=== PATIENT | female | born 1960 | race Caucasian/White ===

== ENCOUNTER 2018-10-23 18:16 | Outpatient (REF) | payer MEDICAID, SELFPAY ==
[2018-10-23 22:48] LABS: ALT 53 U/L (12-78); AST 37 U/L (15-37); Alkaline Phosphatase 95 U/L (46-116); Anion Gap 9.4 mmol/L (3-11); BUN 17 mg/dL (7-18); Bilirubin, Total 0.4 mg/dL (0.2-1.0); CO2 27.6 mmol/L (21.0-32.0); CREATININE 0.88 mg/dL (0.55-1.02); Calcium 9.1 mg/dL (8.5-10.1); Chloride 99 mmol/L (98-107); Glucose 101 mg/dL (70-100); Potassium 3.4 mmol/L (3.5-5.1); Sodium 136 mmol/L (136-145); Total Protein 7.5 g/dL (6.4-8.2)
== END 2018-10-23 18:36 ==
LOC: NCHCN 18:16
PROVIDERS: PCP Family Medicine; Visit Provider Family Medicine
DX: I10 Essential (primary) hypertension (principal)
CPT/HCPCS: 80053

== ENCOUNTER 2019-04-25 11:35 | Outpatient (REF) | payer MEDICAID, SELFPAY ==
--- NOTE | 2019-04-25 14:45 | PAPFT_PTH ---
PATIENT: Keely Colmenares LOC: [facility] U#:[id number] AGE/SX: 59/F ROOM: RE04/25/[address]: Aleksandra Acuna : 1960 BED: DIS: 04/25/2019 SPEC #: [id number] RECD: 04/28/19 12:57 STATUS: ANTONIO RERigoberto #: [id number] BARAK: 04/25/19 14:[address]: Aleksandra Acuna [facility] Cytology RECD BY: Oxana Pollard Tissues: 1 - CX/ENDOCX FOR PAP SMEARS Procedures: PAP THIN PREP/UVM Screening HPV DNA PROBE Comments: [id number]
== END 2019-04-25 11:55 ==
LOC: NCHCN 11:35
PROVIDERS: PCP Family Medicine; Visit Provider Family Medicine
DX: Z12.4 Encounter for screening for malignant neoplasm of cervix (principal)
CPT/HCPCS: 88142; 87624

== ENCOUNTER 2020-05-04 17:01 | Outpatient (REF) | payer MEDICAID, SELFPAY ==
[2020-05-04 21:58] LABS: COMMENT (LAB VIEW ONLY) 119.55 mg/dL; Microalb ug/mg Crea 14.6 ug/mg Cr
== END 2020-05-04 17:21 ==
LOC: NCHCN 17:01
PROVIDERS: PCP Family Medicine; Visit Provider Family Medicine
DX: E11.9 Type 2 diabetes mellitus without complications (principal); I10 Essential (primary) hypertension
CPT/HCPCS: 82043; 82570

== ENCOUNTER 2020-07-27 20:52 | Outpatient (REF) | payer MEDICAID, SELFPAY ==
[2020-07-27 20:44] LABS: Hemoglobin A1C 6.4 % (<5.7)
[2020-07-27 20:50] LABS: ALT 32 U/L (14-59); AST 25 U/L (15-37); Albumin 3.9 g/dL (3.4-5.0); Alkaline Phosphatase 89 U/L (46-116); Anion Gap 10.5 mmol/L (3-11); BUN 19 mg/dL (7-18); Bilirubin, Total 0.4 mg/dL (0.2-1.0); CO2 30.5 mmol/L (21.0-32.0); CREATININE 0.8 mg/dL (0.55-1.02); Calcium 8.7 mg/dL (8.5-10.1); Calculated LDL 109 mg/dL (<100); Chloride 99 mmol/L (98-107); Cholesterol 205 mg/dL (<200); Glucose 92 mg/dL (74-106); HDL Cholesterol 51 mg/dL (40-60); Potassium 3.7 mmol/L (3.5-5.1); Sodium 140 mmol/L (136-145); Total Protein 7.3 g/dL (6.4-8.2); Triglyceride 226 mg/dL (<150)
== END 2020-07-27 20:53 | disposition home or self-care (01) ==
LOC: NCHCN 20:52
PROVIDERS: PCP Family Medicine; Visit Provider Family Medicine
DX: E11.9 Type 2 diabetes mellitus without complications (principal); Z00.00 Encounter for general adult medical examination without abnormal findings; Z13.220 Encounter for screening for lipoid disorders
CPT/HCPCS: 80053; 80061; 83036

== ENCOUNTER 2021-07-26 16:15 | Outpatient (REF) | payer MEDICAID, SELFPAY ==
[2021-07-26 21:21] LABS: Abs Immature Grans 0.02 10^3/uL (0.0-0.06); Absolute Basophil Count 0.06 10^3/uL (0.0-0.2); Absolute Eosinophil Count 0.26 10^3/uL (0.0-0.7); Absolute Lymphocyte Count 2.19 10^3/uL (1.2-3.4); Absolute Monocyte Count 0.65 10^3/uL (0.1-0.8); Absolute Neutrophil Count 4.07 10^3/uL (1.2-6.7); Basophils % 0.8; Eosinophils % 3.6; HCT 42.7 % (36.0-46.0); HGB 13.4 g/dL (11.2-15.7); Immature Grans % 0.3; Lymphocytes % 30.2; MCH 27.7 pg (27.0-33.0); MCHC 31.4 % (32.0-36.0); MCV 88.4 fL (80-95); MPV 9.9 fL (8.0-11.0); Neutrophils % 56.1; Nucleated RBC 0 %; Platelet Count 330 10^3/uL (130-400); RBC 4.83 10^6/uL (3.93-5.22); RDW 15.3 % (11.7-14.6); RDW-SD 49.6 fL; WBC 7.25 10^3/uL (4.4-10.8)
[2021-07-26 21:32] LABS: ESR 71 mm/hr (0-30)
[2021-07-26 21:37] LABS: ALT 24 U/L (14-59); AST 20 U/L (15-37); Albumin 3.7 g/dL (3.4-5.0); Alkaline Phosphatase 116 U/L (46-116); Anion Gap 14.1 mmol/L (3-11); BUN 25 mg/dL (7-18); Bilirubin, Total 0.3 mg/dL (0.2-1.0); CO2 29.9 mmol/L (21.0-32.0); CREATININE 0.7 mg/dL (0.55-1.02); Calcium 8.8 mg/dL (8.5-10.1); Calculated LDL 72 mg/dL (<100); Chloride 94 mmol/L (98-107); Cholesterol 170 mg/dL (<200); Glucose 78 mg/dL (74-106); HDL Cholesterol 47 mg/dL (40-60); Sodium 138 mmol/L (136-145); Total Protein 7.6 g/dL (6.4-8.2); Triglyceride 257 mg/dL (<150)
[2021-07-26 21:49] LABS: C-Reactive Protein 2.28 mg/dL (0.0-0.3)
[2021-07-27 17:02] LABS: Rheumatoid Factor <8.6 IU/mL (<12.0)
[2021-07-28 10:41] LABS: Lyme Ab w Rflx to Lyme Confirm Negative (Negative)
== END 2021-07-26 16:16 | disposition home or self-care (01) ==
LOC: NCHCN 16:15
PROVIDERS: PCP Family Medicine; Visit Provider Family Medicine
DX: I10 Essential (primary) hypertension (principal); M25.59 Pain in other specified joint
CPT/HCPCS: 80053; 80061; 85652; 85025; 86140; 86431; 86618

== ENCOUNTER 2021-10-18 12:21 | Outpatient (REF) | payer MEDICAID, SELFPAY ==
[2021-10-18 22:18] LABS: COMMENT (LAB VIEW ONLY) 223.25 mg/dL; Microalb ug/mg Crea 9.7 ug/mg Cr
--- OUTSIDE RECORDS SUMMARY | 2021-10-19 12:24 | XMS_ITS | Clinical Summary ---
:1960 Author Organization [facility] Address [address] [place] [address] Care Team Providers Name Role Phone Aleksandra Acuna MD Primary Care Provider Allergies Active Allergy Reactions Severity Noted Date Comments Clindamycin Hives 08/29/2021 Medications Medication Sig Dispensed Refills Start Date End Date Status aspirin 81 mg EC tablet Take 81 mg by 0 07/27/2021 Active mouth daily. amLODIPine (NORVASC) 10 Take 10 mg by 0 07/27/2021 Active mg tablet mouth daily. FREESTYLE LITE STRIPS USE ONE STRIP 0 07/06/2021 Active test strips TO TEST TWICE DAILY JARDIANCE 10 mg tablet Take 10 mg by 0 06/28/2021 Active mouth daily. escitalopram oxalate Take 20 mg by 0 07/27/2021 Active (LEXAPRO) 20 mg tablet mouth daily. hydroCHLOROthiazide Take 25 mg by 0 07/27/2021 Active (HYDRODIURIL) 25 mg mouth daily. tablet metFORMIN (GLUCOPHAGE-XR) Take 750 mg 0 07/27/2021 Active 750 mg ER tablet by mouth daily. metoprolol TARtrate Take 100 mg 0 07/27/2021 Active (LOPRESSOR) 50 mg tablet by mouth 2 times daily. omeprazole (PRILOSEC) 40 Take by mouth 0 07/06/2021 Active mg capsule daily. simvastatin (ZOCOR) 20 mg Take 20 mg by 0 07/28/2021 Active tablet mouth daily. valACYclovir (VALTREX) 1 As needed 0 07/06/2021 Active gram tablet magnesium oxide 400 mg Take 400 mg 0 Active magnesium capsule by mouth daily. predniSONE (DELTASONE) 5 Take 3 126 Tablet 0 08/29/2021 mg tablet Tablets by 2 mouth daily for 21 days, THEN 2.5 Tablets daily for 14 days, THEN 2 Tablets daily for 14 days. Active Problems No known active problems Encounters Date Type Specialty Care Team Description 09/26/2021 Telephone Rheumatology Tyra Long Update MD Christi 09/14/2021 Hospital Encounter Radiology Acute ruperto n of both shoulders 08/29/2021 Phlebotomy Only Clinical Laboratory Lab, [facility] [place] Op Polya rthralgia Phlebotomy 08/29/2021 Office Visit Rheumatology Tyra Long Acute pain of both shoulders (Primary Dx); MD Christi Bilateral hip p ain 07/27/2021 Lab Requisition Clinical Laboratory Outr Resulting Lab, Provider from Last 3 Months Social History Tobacco Use Types Packs/Day Years Used Date Current Every Day Smoker 0.75 45 Smokeless Tobacco: Never Used Tobacco Cessation: Ready to Quit: No; Co unseling Given: No Sex Assigned at Date Recorded Not on file Last Filed Vital Signs Vital Sign Reading Time Taken Comments Blood Pressure 134/78 08/29/2021 1429 EDT Pulse 72 08/29/2021 1429 EDT Temperature 36 ??C (96.8 ??F) 08/29/2021 1429 EDT Respiratory Rate - - Oxygen Saturation - - Inhaled Oxygen Concentration - - Weight 86.2 kg (190 lb) 08/29/2021 1429 EDT Height 154.9 cm (5' 1) 08/29/2021 1429 EDT Body Mass Index 35.9 08/29/2021 1429 EDT Plan of Treatment Upcoming Encounters Date Type Specialty Care Team Description 11/03/2021 Office Visit Rheumatology Tyra Long MD [address] [place] [address], [address] [place], [place] [address] (Wo rk) Health Maintenance Due Date Last Done Comments Hepatitis C Screen 1960 COVID-19 Vaccine (#1) 1966 Pneumococcal Immunization (1 - PCV) 1966 Lung Cancer Screening 09/14/2022 09/14/2021 Procedures Procedure Name Priority Date/Time Associated Diagnosis Comme nts CT CHEST LOW DOSE Routine 09/14/2021 14:00 Acute pain of both Results for this LUNG SCREENING EDT shoulders procedure are in the results section. SPEP, INCLUDES Routine 08/29/2021 16:02 Polyarthralgia Results for this QUANTITATION OF EDT procedure ar e in MONOCLONAL SPIKE the results PERFORMABLE section. PROTEIN, TOTAL Routine 08/29/2021 16:02 Polyarthralgia EDT SPEP, INCLUDES Routine 08/29/2021 16:02 Polyarthralgia Results for this QUANTITATION OF EDT procedure ar e in MONOCLONAL SPIKE the results section. CK Routine 08/29/2021 16:02 Polyarthralgia Results f or this EDT procedure are i n the results section. CCP ANTIBODIES Routine 08/29/2021 16:02 Polyarthralgia Results for this EDT procedure are i n the results section. LYME AB Routine 07/26/2021 14:55 Results for this EDT procedure are i n the results section. RHEUMATOID FACTOR Routine 07/26/2021 14:55 Result s for this EDT procedure are i n the results section. from Last [address] CHEST LOW DOSE LUNG SCREENING (09/14/2021 14:00 EDT) Anatomical Region Laterality Modality Chest Computed Tomography Specimen Impressions [facility] - 09/14/2021 15:35 EDT 1. LungRADS Category 2: Benign. Scattere d bilateral pulmonary nodules measuring up to 5 mm. 2. LungRADS Category S: Negative. No cli nically significant or potentially clinically significant nonlung cancer findings requiring urgent additional evaluation. 3. Incidental findings: As above. RECOMMENDATIONS: Continue annual screeni ng with low-dose CT in 12 months Continued ??low dose CT lung cancer scre ening should be based upon continued eligibility determined from age and smoking history. This report utilizes the CT Lung Screeni ng Reporting and Data System (ACR LungRADS version 1.1) as below: Category 0: Incomplete (part or all of l kati cannot be evaluated, or prior chest CT being located for comparison) Category 1: Negative (no nodules or defi nitely benign nodules) Category 2: Benign appearance or behavio r (nodules with very low likelihood of becoming a clinically active cancer, risk of malignancy <1%) Category 3: Probably benign (probably be nign finding - short term follow up suggested, risk of malignancy 1-2%) Category 4: Suspicious (additional diagn ostic testing or tissue sampling recommended) Modifiers to Categories 1-4: Category S: Potentially significant anci llary finding requiring urgent additional evaluation. Narrative [facility] - 09/14/2021 15:[address] CHEST LOW DOSE LUNG SCREENING ??09/14/2021 2:00 PM CLINICAL HISTORY/COMMENTS: LUNG CANCER S CREENING, >= 30 PK-YR SMOKING HISTORY IN LAST 15 YRS (AGE 55-80Y) TECHNIQUE: A single breath-hold helical CT acquisition was performed through the chest on a multidetector-row scanner with a reconstructed slice thickness of 3 mm and retrospectively reconstructed 0.9 m m thick sections with 0.45 mm overlappin g intervals. ??The scans were obtained from the lung apices through the bases without IV contrast. Dose was adjusted between 1.0 and 1.5 milliSieverts for low dos e screening purposes. Scans were reviewe d on a dedicated PACS workstation for analysis. EXAM DESCRIPTION: LOW DOSE CHEST CT FOR LUNG CANCER SCREENING (INITIAL OR FOLLOW-UP). COMPARISON: None. FINDINGS: LUNG SCREENING SPECIFIC (LUNGRADS) FINDI NGS: * ??In the posterior right lung apex the re is a 3mm pleural-based nodule (series 202, image 143). * ??In the lateral right midlung there i s a 3mm nodule (series 202, image 222). * ?? In the posterior right base is a 3m m calcified nodule (series 202, image 438). * ??In the posterior right lower lobe th ere is a 5mm nodule (series 202, image 335). * ??In the posterior left upper lung the re is a 4mm pleural-based nodule (series 202, image 209). POTENTIALLY SIGNIFICANT INCIDENTALS (ESSIE GRADS CATEGORY S): None PULMONARY INCIDENTALS: * ??Emphysema. * ??Large airway thickening. * ??Vague areas of groundglass opacity s cattered within the periphery of the upper lungs, possibly reflecting early interstitial lung disease. ?? OTHER INCIDENTALS: * ??Atherosclerosis throughout the thora cic aorta. Coronary artery calcifications. * ??Partially visualized left upper pole renal 5 cm structure, demonstrating fluid density and likely reflecting a cyst ACR REPORTABLE INCIDENTALS: None Performing Organization Address City/State/ZIP Code Phon e Number [facility] (ABNORMAL) SPEP, INCLUDES QUANTITATION OF MONOCLONAL SPIKE PERFORMABLE (08/29/2021 16:02 EDT) Albumin % 52.1 (L) 55.8 - 66.1 % [facility] Albumin g/dL 3.8 3.6 - 5.2 g/dL [facility] Alpha-1 % 4.8 2.9 - 4.9 % [facility] Alpha-1 g/dL 0.40 0.15 - 0.40 [facility] g/dL [facility] Alpha-2 % 13.4 (H) 7.1 - 11.8 % [facility] Alpha-2 g/dL 1.00 0.50 - 1.00 [facility] g/dL [facility] Beta % 12.7 8.4 - 13.1 % [facility] Beta g/dL 0.90 0.60 - 1.20 [facility] g/dL [facility] Gamma % 17.0 11.1 - 18.8 % [facility] Gamma g/dL 1.20 0.60 - 1.60 [facility] g/dL [facility] SPEP Comment No apparent [facility] monoclonal protein [facility] seen on serum electrophoresisComm ent: See scanned/supplementa ry report. Total Protein 7.3 6.3 - 8.2 g/dL [facility] Specimen Blood - Venous blood (substance) Narrative This result has an attachment that is no t available. Performing Organization Address City/State/ZIP Code Phon e Number [facility] [address] [place] [address] SERVICES CCP ANTIBODIES (08/29/2021 16:02 EDT) Pathologist Sig nature CCP Antibodies <2.5 <5.0 U/mL [facility] Specimen Blood - Venous blood (substance) Performing Organization Address City/State/ZIP Code Phon e Number [facility] [address] [place] [address] SERVICES PROTEIN, TOTAL (08/29/2021 16:02 EDT) Specimen Blood - Venous blood (substance) Performing Organization Address City/State/ZIP Code Phon e Number [facility] [address] [place] [address] CK (08/29/2021 16:02 EDT) Pathologist Sig nature CK 56 30 - 135 U/L [facility] L AB Specimen Blood - Venous blood (substance) Performing Organization Address City/State/ZIP Code Phon e Number [facility] [address] [place] [address] LYME AB (07/26/2021 14:55 EDT) Pathologist Sig nature Lyme Ab Negative Negative [facility] Specimen Blood - Venous blood (substance) Performing Organization Address City/State/ZIP Code Phon e Number [facility] [address] [place] [address] SERVICES RHEUMATOID FACTOR (07/26/2021 14:55 EDT) Pathologist Sig nature Rheumatoid Factor <8.6 <12.0 IU/mL [facility] Specimen Blood - Venous blood (substance) Performing Organization Address City/State/ZIP Code Phon e Number [facility] [address] [place] [address] SERVICES from Last 3 Months Insurance Payer Benefit Plan Subscriber ID Effective Phone Address Typ e / Group Dates MEDICAID ACO MEDICAID ACO [id number] 2019-Pres [phone] [address] [place] [address] [place] [id number] Keely Colmenares Personal/Family Self 1960 [address] [place] [id number] Keely Colmenares Personal/Family Self [address] [place] [id number] Keely Colmenares Personal/Family Self [address] [address] Keely Colmenares Personal/Family Self 1960 [address] (Home) [place] [address] Keely Colmenares Personal/Family Self 1960 [address] (Home) [place] [id number] Keely Colmenares Personal/Family Self 1960 [address] (Home) [place] [id number] Keely Colmenares Personal/Family Self 1960 [address] (Home) [place] [id number] Care Teams Oxyacetylene Torch Operator Relationship Specialty Start Date End Date Aleksandra Acuna MD PCP - General 12/09/[address] [place] [address]
--- OUTSIDE RECORDS SUMMARY | 2021-10-19 12:24 | XMS_ITS | Encounter Summary ---
:[address] [facility] Address [address] [place] [address] Care Team Providers Name Role Phone Aleksandra Acuna MD Primary Care Provider Reason for Referral Radiology Services (Routine/Next Available) - Authorization Not Required Specialty Diagnoses / Procedures Referred By Contact Refer red To Contact Diagnoses Acute pain of both shoulders Tyra Long MD [facility] [place] [facility] CHEST LOW DOSE LUNG SCREENING [address] [phone] Referral ID Status Reason Start Expiration Visits Visits Date Date Requested Authorized [id number] Authorization Not 08/29/2021 1 1 Required Reason for Visit Radiology Services (Routine/Next Available) - Authorization Not Required Specialty Diagnoses / Procedures Referred By Contact Refer red To Contact Diagnoses Acute pain of both shoulders Tyra Long MD [facility] CT CHEST LOW DOSE LUNG SCREENING [address] [phone] Referral ID Status Reason Start Expiration Visits Visits Date Date Requested Authorized [id number] Authorization Not 08/29/2021 1 1 Required Encounter Details Date Type Department Care Team Description 09/14/2021 Hospital Encounter [facility] - A cute pain of both [facility] Scan shoulders [address] [place] [address] Social History Tobacco Use Types Packs/Day Years Used Date Current Every Day Smoker 0.75 45 Smokeless Tobacco: Never Used Sex Assigned at Date Recorded Not on file documented as of this encounter Functional Status Functional Status Response Date of Assessment Because of a physical, mental, or emotional condition, No 08/29/2021 does this person have difficulty doing errands alone such as visiting a doctor's office or shopping? Cognitive Status Response Date of Assessment Because of a physical, mental, or emotional condition, No 08/29/2021 does this person have serious difficulty concentrating, remembering, or making decisions? documented as of this encounter Medications at Time of Discharge Medication Sig Dispensed Refills Start Date End Date amLODIPine (NORVASC) 10 mg Take 10 mg by 0 2021 tablet mouth daily. aspirin 81 mg EC tablet Take 81 mg by 0 2 mouth daily. escitalopram oxalate Take 20 mg by 0 07/27/2021 (LEXAPRO) 20 mg tablet mouth daily. FREESTYLE LITE STRIPS test USE ONE STRIP TO 0 strips TEST TWICE DAILY hydroCHLOROthiazide Take 25 mg by 0 07/27/2021 (HYDRODIURIL) 25 mg tablet mouth daily. JARDIANCE 10 mg tablet Take 10 mg by 0 06/28/2021 mouth daily. magnesium oxide 400 mg Take 400 mg by 0 magnesium capsule mouth daily. metFORMIN (GLUCOPHAGE-XR) Take 750 mg by 0 2021 750 mg ER tablet mouth daily. metoprolol TARtrate Take 100 mg by 0 07/27/2021 (LOPRESSOR) 50 mg tablet mouth 2 times daily. omeprazole (PRILOSEC) 40 mg Take by mouth 0 07/06 capsule daily. simvastatin (ZOCOR) 20 mg Take 20 mg by 0 07/28/ 022 tablet mouth daily. valACYclovir (VALTREX) 1 As needed 0 07/06/2021 gram tablet predniSONE (DELTASONE) 5 mg Take 3 Tablets 126 Tablet 0 12/202110/17/2021 tablet by mouth daily for 21 days, THEN 2.5 Tablets daily for 14 days, THEN 2 Tablets daily for 14 days. documented as of this encounter Discharge Disposition Disposition Code Departure Means Destination Home or Self Care documented in this encounter Plan of Treatment Upcoming Encounters Date Type Specialty Care Team Description 11/03/2021 Office Visit Rheumatology Tyra Long MD [address] [facility] [address], [address] [place], [place] [address] (Wo rk) documented as of this encounter Procedures Procedure Name Priority Date/Time Associated Diagnosis Comme nts CT CHEST LOW DOSE Routine 09/14/2021 14:00 Acute pain of both Results for this LUNG SCREENING EDT shoulders procedure are in the results section. documented in this encounter Results CT CHEST LOW DOSE LUNG SCREENING (09/14/2021 14:00 EDT) Anatomical Region Laterality Modality Chest Computed Tomography Specimen Impressions [facility] - 09/14/2021 15:35 EDT 1. LungRADS Category [...] llary finding requiring urgent additional evaluation. Narrative [facility] - 09/14/2021 15:[address] CHEST LOW [...] Organization Address City/State/ZIP Code Phon e Number [facility] documented in this encounter Visit Diagnoses Diagnosis Acute pain of both shoulders documented in this encounter Care Teams Entry Level Web Developer Relationship Specialty Start Date End Date Aleksandra Acuna MD PCP - General 12/09/[address] [place] [address] documented as of this encounter
--- OUTSIDE RECORDS SUMMARY | 2021-10-19 12:24 | XMS_ITS | Encounter Summary ---
:1960 Author Organization [facility] Address [address] [place] [address] Care Team Providers Name Role Phone Aleksandra Acuna MD Primary Care Provider Reason for Referral Radiology Services (Routine/Next Available) - Authorization Not Required Specialty Diagnoses / Procedures Referred By Contact Refer red To Contact Diagnoses Acute pain of both shoulders Tyra Long MD [facility] [place] CHEST LOW DOSE LUNG SCREENING [address] [facility], [address] [place] [address] Referral ID Status Reason Start Expiration Visits Visits Date Date Requested Authorized [id number] Authorization Not 08/29/2021 1 1 Required Reason for Visit Reason Comments New Patient Visit For polyarthralgia factors p t states 3 months of shoulders,wrists,back of lke kgs/knees. fatigue all the time-no strength. physical therapy h elping some. can feel it all the time;worse in am and nights horrible. has no idea whats going on. tripping a lot Referral (Routine) - Receiving Office to Obtain Authorization Specialty Diagnoses / Procedures Referred By Contact Refer red To Contact Rheumatology Diagnoses Polyarthralgia Aleksandra Acuna MD [facility] [address] [place] [address] [place] [address] Fax: Referral ID Status Reason Start Expiration Visits Visits Date Date Requested Authorized [id number] Receiving Office 1 1 to Obtain Authorization Encounter Details Date Type Department Care Team Description 08/29/2021 Office Visit [facility] - Tyra Long, Acute pain of both shoulders (Primary Dx); [facility] Rheumatology Bilateral hip pain [address] [place] [address] Avenue [phone] [facility], [facility] [address] [place] [address] (Wo rk) Social History Tobacco Use Types Packs/Day Years Used Date Current Every Day Smoker 0.75 45 Smokeless Tobacco: Never Used Tobacco Cessation: Ready to Quit: No; Co unseling Given: No Sex Assigned at Date Recorded Not on file documented as of this encounter Last Filed Vital Signs Vital Sign Reading [...] Body Mass Index 35.9 08/29/2021 1429 EDT documented in this encounter Functional Status Functional Status Response [...] making decisions? documented as of this encounter Patient Instructions Patient InstructionsTyra Long MD - 08/29/2021 14:45 EDT Plan: -your symptoms are consistent with fibromyalgia -recommend starting prednisone 15 mg daily for 3 weeks, then taper by 2.5 mg every 2 weeks to 10 mg -have your cat scan of your chest for lung cancer screening, they will call -labs today -let your PCP know you are on steroids so they can monitor your blood sugar -go to the ED immediately with any vision loss/changes -call clinic if you develop headache, tenderness of scalp, trouble chewing food -follow-up with me in 1 month documented in this encounter Ordered Prescriptions Prescription Sig Dispensed Refills Start Date End Date predniSONE (DELTASONE) 5 Take 3 Tablets by 126 Tablet 0 12/202110/17/2021 mg tablet mouth daily for 21 days, THEN 2.5 Tablets daily for 14 days, THEN 2 Tablets daily for 14 days. documented in this encounter Progress Notes Tyra Long MD - 08/29/2021 7865 EDT DIVISION OF RHEUMATOLOGY AND CLINICAL IMMUNOLOGY CONSULTATION NOTE Date of Service: 08/29/21 Patient seen in consultation at the request of Aleksandra Acuna MD for rheumatologic evaluation for polyarthralgia Chief Complaint Patient presents with ??? New Patient Visit For polyarthralgia factors pt states 3 months of shoulders,wrists,back of lkekgs/knees. fatigue allthe time-no strength. physical therapy helping some. can feel it all the time;worse in am and nightshorrible. has no idea whats going on. tripping a lot HISTORY OF PRESENT ILLNESS: Ms. Keely Colmenares is a 61 y.o. female with obesity, HLD, HTN, DM2, GERD, chronic low back pain s/p L4-L5 laminectomy who presents today for rheumatologic evaluation for polyarthralgia and elevated inflammatory markers. Three months ago she noted bilateral shoulder and upper arm pain. Developed numbness in left 1st 3 digits after arms starting hurting. No history of carpal tunnel syndrome. Also notes pain in bilateralposterior and anterior thighs extending into knees. She initially thought her chronic low back pain was flaring but this pain is different from prior. It hurts to reach above her head to wash hair or crouch down at work. Pain is exacerbated by any movement. Hands have been more puffy since this started but denies joint swelling, redness, warmth. She is stiff in the AM to the point she can barely walk, lasting ~45 minutes. Denies fever, weight loss, headache, vision changes, temporal or scalp tenderness, symptoms of jaw claudication, symptoms of peripheral claudication. She is up-to-date on all age appropriate cancer screening but has not had annual lung cancer screening. Meds: Vicodan (for back) Ibuprofen 800 mg TID Referral labs: CBCD, CMP unremarkable rCRP 2.28 ESR 71 Urine pro/Cr wnl RF neg REVIEW OF SYSTEMS: Symptom Yes No Symptom Yes No Fever X Morning stiffness X Fatigue X Numbness/ tingling X Night sweats X Headaches X Weight change X Muscle weakness X Eye discomfort X Dysuria X Mouth/nose sores X Urinary frequency X Chest pain X Hematuria X Palpitations X Trouble sleeping X Dyspnea X Anxiety X Cough X Depression X Nausea/ vomiting X Change in mood X Abdominal pain X Skin rash/ changes X Blood in stools X Sun induced rash X Diarrhea X Raynaud's X Constipation X Itching X Joint pain X Hair loss X Muscle pain X Other X PMH PSH No past medical history on file. No past surgical history on file. ALLERGIES Allergies Allergen Reactions ??? Clindamycin Hives SOCIAL HISTORY FAMILY HISTORY Social History Tobacco Use ??? Smoking status: Current Every Day Smoker Packs/day: 0.25 Years: 35.00 Pack years: 8.75 Substance Use Topics ??? Alcohol use: Not on file Current smoker. . Works in grocery. No family history of autoimmune disease. MEDICATIONS: Current Outpatient Medications Medication Sig ??? amLODIPine (NORVASC) 10 mg tablet Take 10 mg by mouth daily. ??? aspirin 81 mg EC tablet Take 81 mg by mouth daily. ??? escitalopram oxalate (LEXAPRO) 20 mg tablet Take 20 mg by mouth daily. ??? FREESTYLE LITE STRIPS test strips USE ONE STRIP TO TEST TWICE DAILY ??? hydroCHLOROthiazide (HYDRODIURIL) 25 mg tablet Take 25 mg by mouth daily. ??? JARDIANCE 10 mg tablet Take 10 mg by mouth daily. ??? magnesium oxide 400 mg magnesium capsule Take 400 mg by mouth daily. ??? metFORMIN (GLUCOPHAGE-XR) 750 mg ER tablet Take 750 mg by mouth daily. ??? metoprolol TARtrate (LOPRESSOR) 50 mg tablet Take 100 mg by mouth 2 times daily. ??? omeprazole (PRILOSEC) 40 mg capsule Take by mouth daily. ??? predniSONE (DELTASONE) 5 mg tablet Take 3 Tablets by mouth daily for 21 days, THEN 2.5 Tablets daily for 14 days, THEN 2 Tablets daily for 14 days. ??? simvastatin (ZOCOR) 20 mg tablet Take 20 mg by mouth daily. ??? valACYclovir (VALTREX) 1 gram tablet As needed OBJECTIVE: Blood pressure 134/78, pulse 72, temperature 36 ??C (96.8 ??F), height 154.9 cm (61), weight 86.2 kg (190 lb). General: No acute distress. Alert, fully oriented, pleasant, conversant. HEENT: Conjunctivae/corneas clear. Sclerae anicteric. Mucus membranes moist; oropharynx clear. Neck supple, no cervical lymphadenopathy. Lungs: Clear to auscultation bilaterally. Heart: Regular rate and rhythm, S1, S2 present, no murmur Abdomen: Soft, non-tender, non-distended. Extremities: Extremities without cyanosis. Trace non-pitting pedal edema. Skin: No rashes or lesions. No skin thickening. No nail pitting or onycholysis. Musculoskeletal: Spine: No significant tenderness. Mildly reduced cervical range of motion. Shoulder: No synovitis/effusion. Mildly reduced active B/l shoulder ROM in all planes due to pain, full passive ROM. Elbow: No synovitis/effusion. Appropriate range of motion. Wrist: No synovitis or effusion. Appropriate range of motion. Hand: Nonpitting puffiness dorsum of hands b/l, no joint swelling or tenderness, no dacytlitis; Appropriate range of motion. Hips: No synovitis or effusion. Pain on active flexion and passive int/ext rotation b/l. Knee: No synovitis or effusion. Appropriate range of motion. Ankle: No synovitis or effusion. Appropriate range of motion. Foot: No synovitis or effusion. Appropriate range of motion. Neuro: 5/5 strength throughout upper and lower extremities Labs: Lab Results Component Value Date RF <8.6 07/26/2021 IMPRESSION / PLAN: Ms. Keely Colmenares is a 61 y.o. female with acute onset shoulder and hip girdle pain most consistentwith PMR. Bilateral shoulder pain Bilateral hip pain Acute onset of bilateral shoulder and hip girdle pain and stiffness along with elevated CRP and ESR is most consistent with PMR. She has mild nonpitting edema of her hands which can also be seen in PMRthough RS3PE is a consideration. She denies constitutional or localizing symptoms concerning for malignancy and is up-to-date on age appropriate cancer screening. Will check an SPEP and order LDCT for lung cancer screening today. Differential for PMR is seronegative inflammatory arthritis (will complete workup with CCP) vs spondyloarthropathy vs crystalline disease. Statin myopathy also considered though this is not a new medication and she has full strength throughout. Will check a CK but low suspic ion. No evidence of GCA but discussed warning signs/symptoms. PMR is most likely as we will initiateprednisone 15 mg daily for 3 weeks then taper by 2.5 mg down to 10mg, then by 1 mg monthly thereafter. Remainder of plan as below. Other Orders Placed This Visit Procedures ??? CT CHEST LOW DOSE LUNG SCREENING ??? CCP Antibodies ??? CK ??? SPEP, includes quantitation of monoclonal spike Patient Instructions Plan: -your symptoms are consistent with fibromyalgia -recommend starting prednisone 15 mg daily for 3 weeks, then taper by 2.5 mg every 2 weeks to 10 mg -have your cat scan of your chest for lung cancer screening, they will call -labs today -let your PCP know you are on steroids so they can monitor your blood sugar -go to the ED immediately with any vision loss/changes -call clinic if you develop headache, tenderness of scalp, trouble chewing food -follow-up with me in 1 month Patient verbalizes understanding and agrees with plan. There are no barriers to understanding/learning. I spent a total of 50 minutes on the date of this encounter meeting with the patient and reviewing documentation/coordinating care as described in the above note. Tyra Long MD Rheumatology Attending Pager [phone] 08/30/2021 documented in this encounter Plan of Treatment Upcoming Encounters Date Type Specialty Care Team Description 11/03/2021 Office Visit Rheumatology Tyra Long MD [address] [facility], [facility], [address] [place], [place] [phone] (Wo rk) documented as of this encounter Results CT CHEST LOW DOSE LUNG SCREENING (09/14/2021 14:00 EDT) Anatomical Region Laterality Modality Chest Computed Tomography Specimen Impressions [facility] - 09/14/2021 15:35 EDT [...] llary finding requiring urgent additional evaluation. Narrative [facility] - 09/14/2021 15:35 EDT [...] Organization Address City/State/ZIP Code Phon e Number [facility] CK (08/29/2021 16:02 EDT) Pathologist Sig nature CK 56 30 - 135 U/L [facility] L AB Specimen Blood - Venous blood (substance) Performing Organization Address City/State/ZIP Code Phon e Number [facility] [address] [place] [address] CCP ANTIBODIES (08/29/2021 16:02 EDT) Pathologist Sig nature CCP Antibodies <2.5 <5.0 U/mL [facility] Specimen Blood - Venous blood (substance) Performing Organization Address City/State/ZIP Code Phon e Number [facility] [address] [place] [address] SERVICES documented in this encounter Visit Diagnoses Diagnosis Acute pain of both shoulders - Primary Bilateral hip pain Pain in joint, pelvic region and thigh Acute pain of both shoulders documented in this encounter Historical Medications This list may reflect changes made after this encounter. Medication Sig Dispensed Refills Start Date End Date magnesium oxide 400 mg Take 400 mg by 0 magnesium capsule mouth daily. valACYclovir (VALTREX) 1 gram As needed 0 2021 tablet simvastatin (ZOCOR) 20 mg Take 20 mg by 0 022 tablet mouth daily. omeprazole (PRILOSEC) 40 mg Take by mouth 0 07/06 capsule daily. metoprolol TARtrate Take 100 mg by 0 07/27/2021 (LOPRESSOR) 50 mg tablet mouth 2 times daily. metFORMIN (GLUCOPHAGE-XR) 750 Take 750 mg by 0 mg ER tablet mouth daily. hydroCHLOROthiazide Take 25 mg by 0 07/27/2021 (HYDRODIURIL) 25 mg tablet mouth daily. escitalopram oxalate (LEXAPRO) Take 20 mg by 0 20 mg tablet mouth daily. JARDIANCE 10 mg tablet Take 10 mg by 0 06/28/2021 mouth daily. FREESTYLE LITE STRIPS test USE ONE STRIP TO 0 strips TEST TWICE DAILY amLODIPine (NORVASC) 10 mg Take 10 mg by 0 2021 tablet mouth daily. aspirin 81 mg EC tablet Take 81 mg by 0 2 mouth daily. added in this encounter Care Teams Spike Driver Relationship Specialty Start Date End Date Aleksandra Acuna MD PCP - General 12/09/[address] [place] [place] [address] documented as of this encounter
--- OUTSIDE RECORDS SUMMARY | 2021-10-19 12:24 | XMS_ITS | Encounter Summary ---
:1960 Author Organization [facility] Address [address] [place] [address] Care Team Providers Name Role Phone Aleksandra Acuna MD Primary Care Provider Encounter Details Date Type Department Care Team Description 07/27/2021 Lab Requisition [facility] Outr Resulting Lab, Pathology & Laboratory Provider [facility] [address] [place] [address] Social History Tobacco Use Types Packs/Day Years Used Date Never Assessed Sex Assigned at Date Recorded Not on file documented as of this encounter Plan of Treatment Upcoming Encounters Date Type Specialty Care Team Description 11/03/2021 Office Visit Rheumatology Tyra Long MD [address] [facility] [address] [place], [place] [address] (Wo rk) documented as of this encounter Procedures Procedure Name Priority Date/Time Associated Diagnosis Comme nts LYME AB Routine 07/26/2021 14:55 Results for this EDT procedure are i n the results section. RHEUMATOID FACTOR Routine 07/26/2021 14:55 Result s for this EDT procedure are i n the results section. documented in this encounter Results LYME AB (07/26/2021 14:55 EDT) Pathologist Sig nature Lyme Ab Negative Negative [facility] Specimen Blood - Venous blood (substance) Performing Organization Address City/State/ZIP Code Phon e Number [facility] [address] [place] [address] SERVICES RHEUMATOID FACTOR (07/26/2021 14:55 EDT) Pathologist Sig nature Rheumatoid Factor <8.6 <12.0 IU/mL [facility] Specimen Blood - Venous blood (substance) Performing Organization Address City/State/ZIP Code Phon e Number [facility] [address] [place] [address] SERVICES documented in this encounter Visit Diagnoses Not on filedocumented in this encounter Care Teams Electric Shovel Operator Relationship Specialty Start Date End Date Aleksandra Acuna MD PCP - General 12/09/[address] [place] [address] documented as of this encounter
--- OUTSIDE RECORDS SUMMARY | 2021-10-19 12:24 | XMS_ITS | Encounter Summary ---
:[address] [facility] Address [address] [place] [address] Care Team Providers Name Role Phone Aleksandra Acuna MD Primary Care Provider Encounter Details Date Type Department Care Team Description 02/25/2021 Results Only Imaging [facility] - Aleksandra Acuna MD [facility] Radiology Resul ts [address] [place] [address] [place], [place] [id number] Social History Tobacco Use Types Packs/Day Years Used Date Never Assessed Sex Assigned at Date Recorded Not on file documented as of this encounter Plan of Treatment Upcoming Encounters Date Type Specialty Care Team Description 11/03/2021 Office Visit Rheumatology Tyra Long MD [address] [facility], [address] [place], [place] [address] (Wo rk) documented as of this encounter Procedures Procedure Name Priority Date/Time Associated Diagnosis Comme nts MA BREAST SCREENING 02/25/2021 15:02 Resu lts for this FATOUMATA BILATERAL EDT procedure are in the results section. documented in this encounter Results MA BREAST SCREENING FATOUMATA BILATERAL (02/25/2021 15:02 EDT) Specimen Narrative [facility] - 02/25/2021 15:02 EDT ? EXAM: MAMMOGRAM/MAMMO BILATERAL SCREEN W ??EX. D/ (1323) ? CLINICAL INFORMATION: ? Z12.31 SCREENING ? INDICATION: Z12.31 SCREENING ??SC REENING ??May 21 ? COMPARISON: ??Comparison has been made to previous images. ? TECHNIQUE: ??Full field digital w hole breast 2D (C-view) and 3D CC and ? MLO views of both breasts were ob tained. CAD technology was utilized. ? FINDINGS: ??The fibroglandular pa tterns of the breasts are normal. ? There has been no change when com pared to previous mammograms and ? there is no mammographic evidence of cancer. ??There are scattered ? areas of fibroglandular density. ? FINAL ASSESSMENT: ??BILATERAL TOSHA AST - Category 1 - Negative. Routine ? mammographic follow-up is recomme nded. ? These results will be communicate d to your patient via a lay letter ? from Radiology. ??If any addition al imaging is needed we will contact ? your patient directly. ? REPORT SIGNED IN OTHER VENDOR SYSTEM 02/25/2021 ?Reported B y: Brandt England MD ? CC: ? Transcribed Date/Time: 02/25/2021 (1502) ? Fire Safety Inspector: ? Printed Date/Time: 02/25/2021 (15 19) ? PAGE 1 ? Jo d Report ? Procedure Note Brandt England MD - 02/25/2021 EXAM: MAMMOGRAM/MAMMO BILATERAL SCREEN W EX. D/ (1329) CLINICAL INFORMATION: Z12.31 SCREENING INDICATION: Z12.31 SCREENING SCREENING May 21 COMPARISON: Comparison has been made to previous images. TECHNIQUE: Full field digital whole tosha ast 2D (C-view) and 3D CC and MLO views of both breasts were obtained . CAD technology was utilized. FINDINGS: The fibroglandular patterns o f the breasts are normal. There has been no change when compared to previous mammograms and there is no mammographic evidence of ca ncer. There are scattered areas of fibroglandular density. FINAL ASSESSMENT: BILATERAL BREAST - Ca tegory 1 - Negative. Routine mammographic follow-up is recommended. These results will be communicated to y our patient via a lay letter from Radiology. If any additional imagi ng is needed we will contact your patient directly. REPORT SIGNED IN OTHER VENDOR SYSTEM 02/25/2021 Reported By: Brandt England MD CC: Transcribed Date/Time: 02/25/2021 (3979 ) Fire Safety Inspector: Printed Date/Time: 02/25/2021 (0025) PAGE 1 Signed Report Performing Organization Address City/State/ZIP Code Phon e Number [facility] documented in this encounter Visit Diagnoses Not on filedocumented in this encounter Care Teams Stand Grinder Relationship Specialty Start Date End Date Aleksandra Acuna MD PCP - General 12/09/[address] [place] [place] [address] documented as of this encounter
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
--- OUTSIDE RECORDS SUMMARY | 2021-10-19 12:24 | XMS_ITS | Encounter Summary ---
:1960 Author Organization [facility] Address [address] [place] [address] Care Team Providers Name Role Phone Aleksandra Acuna MD Primary Care Provider Encounter Details Date Type Department Care Team Description 08/29/2021 Phlebotomy Only [facility] - Lab, [facility] Op Poly arthralgia [facility] - Outpatient Phlebotomy Drawing [address] [place], [place] [phone] Social History Tobacco Use Types Packs/Day Years Used Date Current Every Day Smoker 0.25 35 Sex Assigned at Date Recorded Not on [...] making decisions? documented as of this encounter Plan of Treatment Upcoming Encounters Date Type Specialty Care Team Description 11/03/2021 Office Visit Rheumatology Tyra Long MD 111 [facility], Level [address] [place], [place] [address] (Wo rk) documented as of this encounter Procedures Procedure Name Priority Date/Time Associated Diagnosis Comme nts SPEP, INCLUDES Routine 08/29/2021 16:02 Polyarthralgia Results for this QUANTITATION OF EDT procedure ar e in MONOCLONAL SPIKE the results PERFORMABLE section. CCP ANTIBODIES Routine 08/29/2021 16:02 Polyarthralgia Results for this EDT procedure are i n the results section. SPEP, INCLUDES Routine 08/29/2021 16:02 Polyarthralgia Results for this QUANTITATION OF EDT procedure ar e in MONOCLONAL SPIKE the results section. PROTEIN, TOTAL Routine 08/29/2021 16:02 Polyarthralgia EDT CK Routine 08/29/2021 16:02 Polyarthralgia Results f or this EDT procedure are i n the results section. documented in this encounter Results (ABNORMAL) SPEP, INCLUDES QUANTITATION OF MONOCLONAL SPIKE PERFORMABLE (08/29/2021 16:02 EDT) Albumin % 52.1 (L) 55.8 - 66.1 % [facility] Albumin g/dL 3.8 3.6 - 5.2 g/dL [facility] Alpha-1 % 4.8 2.9 - 4.9 % [facility] Alpha-1 g/dL 0.40 0.15 - 0.40 [facility] g/dL LABOR[facility]ORY [facility] Alpha-2 % 13.4 (H) 7.1 - 11.8 % [facility] Alpha-2 g/dL 1.00 0.50 - 1.00 [facility] g/dL LAB[facility]ORY [facility] Beta % 12.7 8.4 - 13.1 % [facility] Beta g/dL 0.90 0.60 - 1.20 [facility] g/dL LAB[facility] Gamma % 17.0 11.1 - 18.8 % [facility] Gamma g/dL 1.20 0.60 - 1.60 [facility] g/dL LAB[facility] SPEP Comment No apparent [facility] monoclonal protein LABORATORY SERVICES seen on serum electrophoresisComm ent: See scanned/supplementa ry report. Total Protein 7.3 6.3 - 8.2 g/dL [facility] Specimen Blood - Venous blood (substance) Narrative This result has an attachment that is no t available. Performing Organization Address City/State/ZIP Code Phon e Number [facility] [address] [place] [address] SERVICES PROTEIN, TOTAL (08/29/2021 16:02 EDT) Specimen Blood - Venous blood (substance) Performing Organization Address City/State/ZIP Code Phon e Number [facility] [address] [place] [address] CK (08/29/2021 16:02 EDT) Pathologist Sig nature CK 56 30 - 135 U/L [facility] L AB Specimen Blood - Venous blood (substance) Performing Organization Address City/State/ZIP Code Phon e Number [facility] [address] [place] [address] CCP ANTIBODIES (08/29/2021 16:02 EDT) Pathologist Sig nature CCP Antibodies <2.5 <5.0 U/mL [facility] ORY SERVICES Specimen Blood - Venous blood (substance) Performing Organization Address City/State/ZIP Code Phon e Number [facility] [address] [place] [address] SERVICES documented in this encounter Visit Diagnoses Diagnosis Polyarthralgia Pain in joint, multiple sites documented in this encounter Care Teams Business Continuity Planner Relationship Specialty Start Date End Date Aleksandra Acuna MD PCP - General 12/09/14 [address] [place] [address] documented as of this encounter
--- OUTSIDE RECORDS SUMMARY | 2021-10-19 12:25 | XMS_ITS | Encounter Summary ---
:1960 Author Organization [facility] Address [address] [place] [address] Care Team Providers Name Role Phone Aleksandra Acuna MD Primary Care Provider Encounter Details Date Type Department Care Team Description 08/05/2016 Historical Results Only [facility] - Aleksandra Lora MD [facility] Radiology Resul ts [address] [place] [address] [phone] Social History Tobacco Use Types Packs/Day Years Used Date Never Assessed Sex Assigned at Date Recorded Not on file documented as of this encounter Plan of Treatment Upcoming Encounters Date Type Specialty Care Team Description 11/03/2021 Office Visit Rheumatology Tyra Long MD 111 [facility], [facility], [address] [place], [place] [address] (Wo rk) documented as of this encounter Visit Diagnoses Not on filedocumented in this encounter Care Teams Wireless Construction Manager Relationship Specialty Start Date End Date Aleksandra Acuna MD PCP - General 12/09/14 [address] [place] [address] documented as of this encounter
--- OUTSIDE RECORDS SUMMARY | 2021-10-19 12:25 | XMS_ITS | Encounter Summary ---
:1960 Author Organization [facility] Address [address] [place] [address] Care Team Providers Name Role Phone Aleksandra Acuna MD Primary Care Provider Encounter Details Date Type Department Care Team Description 08/06/2012 Historical Results [facility] [place], Only [facility] Lab - Main [facility] DO [address] [place] [address] [address], [address] [place] [address] Social History Tobacco Use Types Packs/Day Years Used Date Never Assessed Sex Assigned at Date Recorded Not on file documented as of this encounter Plan of Treatment Upcoming Encounters Date Type Specialty Care Team Description 11/03/2021 Office Visit Rheumatology Tyra Long MD 111 [facility], [facility], Level [address] [place], [place] [phone] (Wo rk) documented as of this encounter Procedures Procedure Name Priority Date/Time Associated Diagnosis Comme nts PAP TEST Routine 08/06/2012 Results for thi s procedure are in the resu lts section. documented in this encounter Results PAP TEST (08/06/2012) Specimen Narrative [facility] - 013 11:49 EDT Name: VERONICAKEELY ? : [birth year] ?Age/Sex: 59/F ?Unit#: [id number] ? Loc: AGO ? Status: REG POV ?? Reg Date: 08/06/12 ? Pt.Phone Number : ? Specimen: [id number] ?STA TUS: SOUT ?Spec Date:08/06/12 ? Physician Copies: ?[place] DO Tissues: ? Cervical/Endo Pap ?Ricardo Arenas CPT: 61243 ?? Units: ??1 ? CYTOLOGY DIAGNOSIS SPECIMEN ADEQUACY: ?Satisfactory for evaluation. Transformation zone component present. GENERAL CATEGORIZATION: ?Negative fo r Intraepithelial Lesion or Malignancy DESCRIPTIVE DIAGNOSIS: ?? Reactive cellular changes associated wi th inflammation present (includes typical repair). Shift in sonja present suggestive of ba cterial vaginosis. RECOMMENDATIONS/COMMENTS: ?None. ORDER QUERIES: LMP: 02/01 ?? - WNL1 ? N Post ? N ??PREVIOUS ATYPICAL: N BCP/HRT? N Rad Rx? N IUD? N ??PAP PLUS HPV? N ??REFLEX TO HR-HPV IF ASCUS ?? REFLEX TO HPV 16/18 IF HPV POS/PAP NEG ?? HPV REGARDLESS?RFLX HPV IF LSIL ?? IF ASCUS DO HPV? Y Signed ____(signature on file)____ Milad Bocanegra M.D. 08/15/12 ?? By the signature above, the attending ph ysician certifies that he/she has personally conducted a gross and/or microscopic exa mination of the described specimens and rendered or confirmed the above diagnosi s. Test Performed by [facility], [address] [place] [phone] Crepe Box Tender: Ladan Marmolejo MD PHD Performing Organization Address City/State/ZIP Code Phon e Number [facility] [address] [place] [address] [facility] documented in this encounter Visit Diagnoses Not on filedocumented in this encounter Care Teams Physician Pediatrician Relationship Specialty Start Date End Date Aleksandra Acuna MD PCP - General 12/09/[address] [place], [place] [address] documented as of this encounter
--- OUTSIDE RECORDS SUMMARY | 2021-10-19 12:25 | XMS_ITS | Encounter Summary ---
:1960 Author Organization [facility] Address [address] [place] [address] Care Team Providers Name Role Phone Unavailable Primary Care Provider Unavailable Encounter Details Date Type Department Care Team Description 05/03/2000 Hospital Encounter [facility] [place] [facility], [facility] [phone] [place] [address] [place], [facility] [address] [place] [phone] (Wo rk) Social History Tobacco Use Types Packs/Day Years Used Date Never Assessed Sex Assigned at Date Recorded Not on file documented as of this encounter Discharge Disposition Disposition Code Departure Means Destination Auto Discharge documented in this encounter Plan of Treatment Upcoming Encounters Date Type Specialty Care Team Description 11/03/2021 Office Visit Rheumatology Tyra Long MD 111 [facility], [facility], [address] [place], [place] [phone] (Wo rk) documented as of this encounter Procedures Procedure Name Priority Date/Time Associated Diagnosis Comme nts MR LUMBAR SPINE WO Routine 05/03/2000 18:46 Resul ts for this CONTRAST EST procedure are i n the results section. documented in this encounter Results MR LUMBAR SPINE WO CONTRAST (05/03/2000 18:46 EST) Anatomical Region Laterality Modality Other Specimen Impressions [facility] - 03/03/2009 1: 11 EST IMPRESSION: 1. Small central protrusion, L4-5. 2. Large extruded herniation with possib le associated free fragment extending rightward at the L5-S1 level. dw Narrative [facility] - 03/03/2009 1: 11 EST RT LOWER EXTREMITY PAIN R/O HNP MRI OF THE LUMBOSACRAL SPINE WITHOUT CON TRAST: 05/03/00 CLINICAL HISTORY: Right lower extremity pain. Rule out HNP . TECHNIQUE: Multiplanar T1 and T2 weighted spin echo imaging. FINDINGS: 1. There is abnormal signal intensity in the L4-5 and L5-S1 discs indicative of degeneration and desiccati on. 2. No evidence of high-grade foraminal s tenosis at any level on either side. 3. Moderate sized extruded herniation ex tending rightward at the L5-S1 level with a possible free fragment caus ing S1 nerve root and thecal sac compression. 4. Small central protrusion at L4-5. 5. Normal termination of the conus medul shannan. 6. Normal pre-, retro-, and paraspinous soft tissues including aorta and inferior vena cava. Procedure Note Rafael Guzman MD - 03/03/2009 RT LOWER EXTREMITY PAIN R/O HNP MRI OF THE LUMBOSACRAL SPINE WITHOUT CON TRAST: 05/03/00 CLINICAL HISTORY: Right lower extremity pain. Rule out HNP . TECHNIQUE: Multiplanar T1 and T2 weighted spin echo imaging. FINDINGS: 1. There is abnormal signal intensity in the L4-5 and L5-S1 discs indicative of degeneration and desiccati on. 2. No evidence of high-grade foraminal s tenosis at any level on either side. 3. Moderate sized extruded herniation ex tending rightward at the L5-S1 level with a possible free fragment caus ing S1 nerve root and thecal sac compression. 4. Small central protrusion at L4-5. 5. Normal termination of the conus medul shannan. 6. Normal pre-, retro-, and paraspinous soft tissues including aorta and inferior vena cava. IMPRESSION IMPRESSION: 1. Small central protrusion, L4-5. 2. Large extruded herniation with possib le associated free fragment extending rightward at the L5-S1 level. dw Performing Organization Address City/State/ZIP Code Phon e Number [facility] [address] [facility] [address] [facility] [address] [place], [place] [address] documented in this encounter Visit Diagnoses Not on filedocumented in this encounter
--- OUTSIDE RECORDS SUMMARY | 2021-10-19 12:25 | XMS_ITS | Encounter Summary ---
:1960 Author Organization [facility] Address [address] [place] [address] Care Team Providers Name Role Phone Unavailable Primary Care Provider Unavailable Encounter Details Date Type Department Care Team Description 05/16/2000 - Hospital Encounter [facility] [place], 05/17/2000 General Surgery Unit MD 111 [facility] [address] [place] [address] Avenue [phone] [facility] [address] [place] [phone] (Wo rk) Social History Tobacco Use Types Packs/Day Years Used Date Never Assessed Sex Assigned at Date Recorded Not on file documented as of this encounter Discharge Disposition Disposition Code Departure Means Destination Home or Self Care documented in this encounter Plan of Treatment Upcoming Encounters Date Type Specialty Care Team Description 11/03/2021 Office Visit Rheumatology Tyra Long MD 111 [facility] 5 [place], [place] [phone] (Wo rk) documented as of this encounter Procedures Procedure Name Priority Date/Time Associated Diagnosis Comme nts L SPINE 1 VIEW Routine 05/16/2000 11:27 EST Resul ts for this procedure are i n the results section . L SPINE 1 VIEW Routine 05/16/2000 11:00 EST Resul ts for this procedure are i n the results section . documented in this encounter Results L SPINE 1 VIEW (05/16/2000 11:27 EST) Anatomical Region Laterality Modality Other Specimen Narrative [facility] - 03/03/2009 1: 22 EST CHECK LEVEL LUMBAR DISC DISPLACEMENT LUMBAR SPINE HISTORY: Check level lumbar disc displac ement. We have a cross table lateral view of th e lumbar spine taken in the Operating Room at 11:00 for localization purposes. The exam shows that the localizing marker is positioned at the level of the posterior margin of S1. A cross table lateral view of the lumbar spine taken in the Operating Room for localization purposes at 11:30 shows that the localizing marker is again positioned at the level of the posterior margin of S1. /alexandra Procedure Note Jose Tom MD - 03/03/2009 CHECK LEVEL LUMBAR DISC DISPLACEMENT LUMBAR SPINE HISTORY: Check level lumbar disc displac ement. We have a cross table lateral view of th e lumbar spine taken in the Operating Room at 11:00 for localization purposes. The exam shows that the localizing marker is positioned at the level of the posterior margin of S1. A cross table lateral view of the lumbar spine taken in the Operating Room for localization purposes at 11:30 shows that the localizing marker is again positioned at the level of the posterior margin of S1. /alexandra Performing Organization Address City/[facility] Phon e Number [facility] 111 [facility] [place] [address] [facility] [address] [place] [address] L SPINE 1 VIEW (05/16/2000 11:00 EST) Anatomical Region Laterality Modality Other Specimen Narrative [facility] - 03/03/2009 1: 21 EST CHECK LEVEL LUMBAR DISC DISPLACEMENT Procedure Note Joes Tom MD - 03/03/2009 CHECK LEVEL LUMBAR DISC DISPLACEMENT Performing Organization Address City/[facility] Phon e Number [facility] 111 [facility] [address] [facility] [address] [place] [phone] documented in this encounter Visit Diagnoses Not on filedocumented in this encounter
--- OUTSIDE RECORDS SUMMARY | 2021-10-19 12:25 | XMS_ITS | Encounter Summary ---
:1960 Author Organization [facility] Address [address] [place] [address] Care Team Providers Name Role Phone Unavailable Primary Care Provider Unavailable Encounter Details Date Type Department Care Team Description 06/29/2000 - [facility] 07[facility]2000 Brianda Alvarez MD [address] [place], [place] [phone] Social History Tobacco Use Types Packs/Day Years Used Date Never Assessed Sex Assigned at Date Recorded Not on file documented as of this encounter Discharge Disposition Disposition Code Departure Means Destination Auto Discharge documented in this encounter Plan of Treatment Upcoming Encounters Date Type Specialty Care Team Description 11/03/2021 Office Visit Rheumatology Tyra Long MD 111 [facility], [facility], [address] [place], [place] [phone] (Wo rk) documented as of this encounter Visit Diagnoses Not on filedocumented in this encounter
--- OUTSIDE RECORDS SUMMARY | 2021-10-19 12:25 | XMS_ITS | Encounter Summary ---
:1960 Author Organization [facility] Address [address] [place] [address] Care Team Providers Name Role Phone Aleksandra Acuna MD Primary Care Provider Encounter Details Date Type Department Care Team Description 05/23/2018 Historical Results Only [facility] - Aleksandra Lora MD [facility] Rad[facility] Resul ts [address] [place] [id number] Social History Tobacco Use Types Packs/Day Years Used Date Never Assessed Sex Assigned at Date Recorded Not on file documented as of this encounter Plan of Treatment Upcoming Encounters Date Type Specialty Care Team Description 11/03/2021 Office Visit Rheumatology Tyra Long MD 111 [facility], [facility], Level [address] [place], [place] [phone] (Wo rk) documented as of this encounter Procedures Procedure Name Priority Date/Time Associated Diagnosis Comme nts MA BREAST SCREENING 05/23/2018 14:12 Resu lts for this FATOUMATA BILATERAL EST procedure are in the results section. documented in this encounter Results MA BREAST SCREENING FATOUMATA BILATERAL (05/23/2018 14:12 EST) Specimen Narrative RADIOLOGY - 05/23/2018 14:12 EST ? EXAM: MAMMOGRAM/MAMMO BILATERAL SCREEN W ??EX. D/ (1528) ? CLINICAL INFORMATION: ? Z12.31 SCREENING ? INDICATION: Z12.31 SCREENING THYR OID NODULE; SCREENING, 07/2016 ? COMPARISON: 2008, 2009, 2012, 201 , 2016 ? TECHNIQUE: ??Full field digital w hole breast 2D (C-view) and 3D CC and ? MLO views of both breasts were ob tained. CAD technology was utilized. ? FINDINGS: ??The fibroglandular pa tterns of the breasts are normal. ? There has been no change when com pared to previous mammograms and ? there is no mammographic evidence of cancer. The breast tissue is of ? scattered density. ? FINAL ASSESSMENT: ??BILATERAL TOSHA AST - Category 1 - Negative. Routine ? mammographic follow-up is recomme nded. ? These results will be communicate d to your patient via a lay letter ? from Radiology. ??If any addition al imaging is needed we will contact ? your patient directly. ? REPORT SIGNED IN OTHER VENDOR SYSTEM 05/23/2018 ?Reported B y: Brandt England MD ? CC: ? Transcribed Date/Time: 05/23/2018 (1412) ? Speech Lang Path: ? Printed Date/Time: 10/13/2018 (17 36) ? PAGE 1 ? Jo d Report ? Procedure Note Brandt England MD - 02/27/2019 EXAM: MAMMOGRAM/MAMMO BILATERAL SCREEN W EX. D/ (1528) CLINICAL INFORMATION: Z12.31 SCREENING INDICATION: Z12.31 SCREENING THYROID NO DULE; SCREENING, 07/2016 COMPARISON: 2007, 2009, 2011, 2013, 201 7 TECHNIQUE: Full field digital whole tosha ast 2D (C-view) and 3D CC and MLO views of both breasts were obtained . CAD technology was utilized. FINDINGS: The fibroglandular patterns o f the breasts are normal. There has been no change when compared to previous mammograms and there is no mammographic evidence of ca ncer. The breast tissue is of scattered density. FINAL ASSESSMENT: BILATERAL BREAST - Ca tegory 1 - Negative. Routine mammographic follow-up is recommended. These results will be communicated to y our patient via a lay letter from Radiology. If any additional imagi ng is needed we will contact your patient directly. REPORT SIGNED IN OTHER VENDOR SYSTEM 05/23/2018 Reported By: Brandt England MD CC: Transcribed Date/Time: 05/23/2018 (2875 ) Speech Lang Path: Printed Date/Time: 10/13/2018 (9030) PAGE 1 Signed Report Performing Organization Address City/State/ZIP Code Phon e Number RADIOLOGY documented in this encounter Visit Diagnoses Not on filedocumented in this encounter Care Teams Chief Of Hospital Medicine Relationship Specialty Start Date End Date Aleksandra Acuna MD PCP - General 12/09/[address] [place] [address] documented as of this encounter
--- OUTSIDE RECORDS SUMMARY | 2021-10-19 12:25 | XMS_ITS | Encounter Summary ---
:[address] [facility] Address [address] [place] [address] Care Team Providers Name Role Phone Aleksandra Acuna MD Primary Care Provider Encounter Details Date Type Department Care Team Description 04/29/2019 Lab Requisition [facility] Aleksandra Acuna Enco unter for general adult medical examination without abnormal findings; Pathology & MD Encounter for screening for malignant ne oplasm of cervix Laboratory Medicine - [id number] [place] [address] [phone] Social History Tobacco Use Types Packs/Day Years Used Date Never Assessed Sex Assigned at Date Recorded Not on file documented as of this encounter Plan of Treatment Upcoming Encounters Date Type Specialty Care Team Description 11/03/2021 Office Visit Rheumatology Tyra Long MD 111 [facility], [facility], Level 5 [place], [place] [address] (Wo rk) documented as of this encounter Procedures Procedure Name Priority Date/Time Associated Comments Diagnosis PAP TEST Today 04/25/2019 14:45 Encounter for Results fo r this EST general adult procedure are in medical examination the resu lts without abnormal section. findings Encounter for screening for malignant neoplasm of cervix HUMAN PAPILLOMAVIRUS Today 04/25/2019 14:45 Encounter for Re sults for this (HPV) DETECTION-HIGH EST general adult proced ure are in RISK TYPES medical examination the resu lts without abnormal section. findings Encounter for screening for malignant neoplasm of cervix documented in this encounter Results HUMAN PAPILLOMAVIRUS (HPV) DETECTION-HIGH RISK TYPES (04/25/2019 14:45 EST) Human Papillomavirus NegativeComment: No Negative UV MEDICAL (HPV) Detection-High E6 or E7 mRNA is CENTER LABORATOR Y Types detected from HPV SERVICES types 16,18,31,33,35,39,45 ,51,52,56,58,59,66, and 68 by certified legal investigator mediated amplification. Specimen Pap Test - Cervix and/or Endocervix Performing Organization Address City/[facility]/ZIP Code Phon e Number [facility] [address] [place] [address] SERVICES PAP TEST (04/25/2019 14:45 EST) Specimens A. Cervix and/or [facility] Endocervix, , CENTER ThinPrep Imaging LABORATORY System with Manual SERVICES Evaluation Specimen Adequacy Satisfactory for [facility] Evaluation - CENTER transformation zone LABORATORY component present SERVICES General Negative for [facility] Categorization intraepithelial CENTER lesion or malignancy LABORATORY SERVICES Descriptive Shift in sonja [facility] Diagnosis present suggestive of CENTER bacterial vaginosis. LABORATORY SERVICES Attestation . [facility] Electronically CENTER signed by Hanna gómez, LABORATORY CHRISTOPHER Jackson( CP) SERVICES on 05/05/2019 at 1421 Clinical History SEE ORDER COMMENTS [facility] SERVICES HPV The result for the Human Pap illomavirus (HPV) Detection-High Risk Types is Negative. No E6 or E7 mRNA is detected from HPV types 16,18,31,33,35,39,45,51,52,56,58,59,66, and 68 by certified legal investigator mediated [facility] amplification.Testing was pe rformed on specimen [id number] and was resulted on 05/05/2019 1416 EST by MILADY, LAB INSTRUMENT RESULTS IN [facility] LABORATORY SERVICES Scanned Images [facility] SERVICES Specimen Pap Test - Cervix and/or Endocervix Performing Organization Address City/[facility]/ZIP [facility] Phon e Number [facility] [address] [place] [address] SERVICES documented in this encounter Visit Diagnoses Diagnosis Encounter for general adult medical exam ination without abnormal findings Unspecified general medical examination Encounter for screening for malignant ne oplasm of cervix Screening for malignant neoplasm of the cervix documented in this encounter Care Teams Equal Opportunity Director Relationship Specialty Start Date End Date Aleksandra Acuna MD PCP - General 12/09/[address] [address] documented as of this encounter
--- OUTSIDE RECORDS SUMMARY | 2021-10-19 12:25 | XMS_ITS | Encounter Summary ---
:1960 Author Organization [facility] Address [address] [place] [address] Care Team Providers Name Role Phone Aleksandra Acuna MD Primary Care Provider Encounter Details Date Type Department Care Team Description 08/07/2016 Historical Results Only [facility] - Aleksandra Lora MD [facility] Radiology Resul ts [address] [place] [address] Social History Tobacco Use Types Packs/Day Years Used Date Never Assessed Sex Assigned at Date Recorded Not on file documented as of this encounter Plan of Treatment Upcoming Encounters Date Type Specialty Care Team Description 11/03/2021 Office Visit Rheumatology Tyra Long MD 111 [facility], Level [address] [place], [place] [address] (Wo rk) documented as of this encounter Procedures Procedure Name Priority Date/Time Associated Diagnosis Comme nts MA BREAST SCREENING 08/07/2016 12:34 Resu lts for this FATOUMATA BILATERAL EDT procedure are in the results section. documented in this encounter Results MA BREAST SCREENING FATOUMATA BILATERAL (08/07/2016 12:34 EDT) Specimen Narrative [facility] - 08/07/2016 12:35 EDT ? EXAM: MAMMOGRAM/MAMMO BILATERAL SCREEN W ??EX. D/ (1147) ? CLINICAL INFORMATION: ? Z12.31 SCREENING ? INDICATION: Z12.31 SCREENING ROUT INE SCREENING LAST DORETHA 08/06/12 ? COMPARISON: ??2008, 2009, 2012, 2 013 ? TECHNIQUE: ??Full field digital w hole breast 2D (C-view) and 3D CC and ? MLO views of both breasts were ob tained. CAD technology was utilized. ? FINDINGS: ??The fibroglandular pa tterns of the breasts are normal. ? There has been no change when com pared to previous mammograms and ? there is no mammographic evidence of cancer. The breasts are of ? scattered density. ? FINAL ASSESSMENT: ??BILATERAL TOSHA AST - Category 1 - Negative. ?Routine mammographic follow-up is ? recommended. ? These results will be communicate d to your patient via a lay letter ? from Radiology. ??If any addition al imaging is needed we will contact ? your patient directly. ? REPORT SIGNED IN OTHER VENDOR SYSTEM 08/07/2016 ?Reported B y: Brandt England MD ? CC: ? Transcribed Date/Time: 08/07/2016 (1235) ? Engine Dynamometer Tester: ? Printed Date/Time: 10/05/2018 (17 41) ? PAGE 1 ? Jo d Report ? Procedure Note Brandt England MD - 02/26/2019 EXAM: MAMMOGRAM/MAMMO BILATERAL SCREEN W EX. D/ (1147) CLINICAL INFORMATION: Z12.31 SCREENING INDICATION: Z12.31 SCREENING ROUTINE SC REENING LAST DORETHA 08/06/12 COMPARISON: 2007, 2009, 2011, 2012 TECHNIQUE: Full field digital whole tosha ast 2D (C-view) and 3D CC and MLO views of both breasts were obtained . CAD technology was utilized. FINDINGS: The fibroglandular patterns o f the breasts are normal. There has been no change when compared to previous mammograms and there is no mammographic evidence of ca ncer. The breasts are of scattered density. FINAL ASSESSMENT: BILATERAL BREAST - Ca tegory 1 - Negative. Routine mammographic follow-up is recommended. These results will be communicated to y our patient via a lay letter from Radiology. If any additional imagi ng is needed we will contact your patient directly. REPORT SIGNED IN OTHER VENDOR SYSTEM 08/07/2016 Reported By: Brandt England MD CC: Transcribed Date/Time: 08/07/2016 (1235 ) Engine Dynamometer Tester: Printed Date/Time: 10/05/2018 (5457) PAGE 1 Signed Report Performing Organization Address City/State/ZIP Code Phon e Number [facility] RADIOLOGY documented in this encounter Visit Diagnoses Not on filedocumented in this encounter Care Teams Educational Psychology Professor Relationship Specialty Start Date End Date Aleksandra Acuna MD PCP - General 12/09/[address] [place] [place] [address] documented as of this encounter
--- OUTSIDE RECORDS SUMMARY | 2021-10-19 12:25 | XMS_ITS | Encounter Summary ---
:1960 Author Organization [facility] Address [address] [place] [address] Care Team Providers Name Role Phone Unavailable Primary Care Provider Unavailable Encounter Details Date Type Department Care Team Description 05/31/2000 - Hospital Encounter [facility], 06/20/2000 Brianda Alvarez MD [address] [place], [place] [address] Social History Tobacco Use Types Packs/Day Years Used Date Never Assessed Sex Assigned at Date Recorded Not on file documented as of this encounter Discharge Disposition Disposition Code Departure Means Destination Auto Discharge documented in this encounter Plan of Treatment Upcoming Encounters Date Type Specialty Care Team Description 11/03/2021 Office Visit Rheumatology Tyra Long MD 111 [facility], [facility], [address] [place], [place] [address] (Wo rk) documented as of this encounter Visit Diagnoses Not on filedocumented in this encounter
--- OUTSIDE RECORDS SUMMARY | 2021-10-19 12:25 | XMS_ITS | Encounter Summary ---
:[address] [facility] Address [address] [place] [address] Care Team Providers Name Role Phone Aleksandra Acuna MD Primary Care Provider Encounter Details Date Type Department Care Team Description 12/10/2013 Historical Results [facility], Only [facility] - Main [facility] DO [address] [place] [address] [address] [place] [address] Social History Tobacco Use Types Packs/Day Years Used Date Never Assessed Sex Assigned at Date Recorded Not on file documented as of this encounter Plan of Treatment Upcoming Encounters Date Type Specialty Care Team Description 11/03/2021 Office Visit Rheumatology Tyra Long MD 111 [facility], [facility], [address] [place], [place] [address] (Wo rk) documented as of this encounter Procedures Procedure Name Priority Date/Time Associated Diagnosis Comme nts PAP TEST Routine 12/10/2013 13:40 EDT Results for this procedure are i n the results section . documented in this encounter Results PAP TEST (12/10/2013 13:40 EDT) Specimen Narrative [facility] - 014 16:08 EDT Name: KEELY MARTIN ? : [birth year] ?Age/Sex: 59/F ?Unit#: [id number] ? Loc: AGO ? Status: REG POV ?? Reg Date: 12/10/13 ? Pt.Phone Number : ? Specimen: [id number] ?STA TUS: SOUT ?Spec Date:12/10/13 ? Physician Copies: ?Ted Hills DO Tissues: ? Cervical/Endo Pap ?Ricardo Arenas CPT: 84990 ?? Units: ??1 ? CYTOLOGY DIAGNOSIS SPECIMEN ADEQUACY: ?Satisfactory for evaluation. Transformation zone component present. GENERAL CATEGORIZATION: ?Negative fo r Intraepithelial Lesion or Malignancy DESCRIPTIVE DIAGNOSIS: ?? Shift in sonja present suggestive of bacterial vaginosis. ?HPV DNA RESULTS ?? 12/10/13 1341 HPV DNA RESULT ??NEG ? Negative for HP V types 16, 18, 31, 33, 35, 39, 45, 51, 52, ? 56, 58, 59, 66, 68. ? Method: Cervist a HPV HR (High Risk) DNA test. ORDER QUERIES: LMP: 03/05 ?? - 03/05 ?Pregna nt? N Post ? N ??PREVIOUS ATYPICAL: N BCP/HRT? N Rad Rx? N IUD? N ??PAP PLUS HPV? Y ??REFLEX TO HR-HPV IF ASCUS N REFLEX TO HPV 16/18 IF HPV POS/PAP NEG N HPV REGARDLESS? Y ??RFLX HPV IF LSIL ?? Signed Precious Ramirez CT(ASCP) 12/12/13 By the signature above, the attending ph ysician certifies that he/she has personally conducted a gross and/or microscopic exa mination of the described specimens and rendered or confirmed the above diagnosi s. Test Performed by [facility], [address] [place] [id number] Superintendent Drivers: Ladan Marmolejo MD PHD Performing Organization Address City/State/ZIP Code Phon e Number [facility] [address] [place] [phone] [place] [address] LAB documented in this encounter Visit Diagnoses Not on filedocumented in this encounter Care Teams Electrical Cad Technician Relationship Specialty Start Date End Date Aleksandra Acuna MD PCP - General 12/09/14 [address] [place] [phone] documented as of this encounter
--- OUTSIDE RECORDS SUMMARY | 2021-10-19 12:25 | XMS_ITS | Encounter Summary ---
:1960 Author Organization [facility] Address [address] [place] [address] Care Team Providers Name Role Phone Aleksandra Acuna MD Primary Care Provider Encounter Details Date Type Department Care Team Description 05/21/2018 Historical Results Only [facility] - Aleksandra Lora MD [facility] Radiology Resul ts [address] [place] [address] [phone] Social History Tobacco Use Types Packs/Day Years Used Date Never Assessed Sex Assigned at Date Recorded Not on file documented as of this encounter Plan of Treatment Upcoming Encounters Date Type Specialty Care Team Description 11/03/2021 Office Visit Rheumatology Tyra Long MD 111 [facility], [facility], [address] [place], [place] [address] (Wo rk) documented as of this encounter Visit Diagnoses Not on filedocumented in this encounter Care Teams Manager Alliance Relationship Specialty Start Date End Date Aleksandra Acuna MD PCP - General 12/09/14 [address] [place] [address] documented as of this encounter
--- OUTSIDE RECORDS SUMMARY | 2021-10-19 12:25 | XMS_ITS | Encounter Summary ---
:1960 Author Organization [facility] Address [address] [place] [address] Care Team Providers Name Role Phone Aleksandra Acuna MD Primary Care Provider Encounter Details Date Type Department Care Team Description 12/09/2014 Hospital Encounter [facility] - Aleksandra Acuna MD [facility] [id number] [place] [address] [phone] Social History Tobacco Use Types Packs/Day Years Used Date Never Assessed Sex Assigned at Date Recorded Not on file documented as of this encounter Discharge Diagnoses Diagnosis 401.9 HYPERTENSION NOS[ICD-9-CM] documented in this encounter Discharge Disposition Disposition Code Departure Means Destination Auto Discharge Home documented in this encounter Plan of Treatment Upcoming Encounters Date Type Specialty Care Team Description 11/03/2021 Office Visit Rheumatology Tyra Long MD 111 [facility], [facility], [address] [place], [place] [address] (Wo rk) documented as of this encounter Visit Diagnoses Not on filedocumented in this encounter Care Teams Abrasives Sales Representative Relationship Specialty Start Date End Date Aleksandra Acuna MD PCP - General 12/09/14 [address] [place], [place] [phone] documented as of this encounter
--- OUTSIDE RECORDS SUMMARY | 2021-10-19 12:25 | XMS_ITS | Encounter Summary ---
:1960 Author Organization [facility] Address [address] [place] [address] Care Team Providers Name Role Phone Aleksandra Acuna MD Primary Care Provider Encounter Details Date Type Department Care Team Description 02/18/2010 Historical Results [facility] [place] [facility], Only [facility] - Main [facility] DO [address] [place] [address] [address], [address] [place] [address] Social History Tobacco Use Types Packs/Day Years Used Date Never Assessed Sex Assigned at Date Recorded Not on file documented as of this encounter Plan of Treatment Upcoming Encounters Date Type Specialty Care Team Description 11/03/2021 Office Visit Rheumatology Tyra Long MD 111 [facility], [facility], Level [address] [place], [place] [address] (Wo rk) documented as of this encounter Procedures Procedure Name Priority Date/Time Associated Diagnosis Comme nts PAP TEST Routine 02/18/2010 Results for thi s procedure are in the resu lts section. documented in this encounter Results PAP TEST (02/18/2010) Specimen Narrative [facility] - 010 16:30 EDT Name: KEELY MARTIN ? : [birth year] ?Age/Sex: 59/F ?Unit#: [id number] ? Loc: AGO ? Status: REG POV ?? Reg Date: 02/18/10 ? Pt.Phone Number : ? Specimen: [id number] ?STA TUS: SOUT ?Spec Date:02/18/10 ? Physician Copies: ?Ted Hills DO Tissues: ? Cervical/Endo Pap ? CPT: 98486 ?? Units: ??1 ? CYTOLOGY DIAGNOSIS SPECIMEN ADEQUACY: ?Satisfactory for evaluation. Transformation zone component present. GENERAL CATEGORIZATION: ?Negative fo r Intraepithelial Lesion or Malignancy DESCRIPTIVE DIAGNOSIS: ? Negative fo r Intraepithelial Lesion or Malignancy. RECOMMENDATIONS/COMMENTS: ?None. ORDER QUERIES: LMP: 01/22/10- ?Preg nant? N Post ? N ??PREVIOUS ATYPICAL: Y BCP/HRT? N Rad Rx? N IUD? N ??PAP PLUS HPV? N ??REFLEX TO HR-HPV IF ASCUS ?? REFLEX TO HPV 16/18 IF HPV POS/PAP NEG ?? HPV REGARDLESS?RFLX HPV IF LSIL ?? IF ASCUS DO HPV? Y Signed Precious Ramirez CT(ASCP) 02/23/10 By the signature above, the attending ph ysician certifies that he/she has personally conducted a gross and/or microscopic exa mination of the described specimens and rendered or confirmed the above diagnosi s. Test Performed by [facility], [address] [address] Airport Ramp Agent: Ladan Marmolejo MD PHD Performing Organization Address City/State/ZIP Code Phon e Number [facility] [address] [place] [address] [facility] documented in this encounter Visit Diagnoses Not on filedocumented in this encounter Care Teams Sports Complex Attendant Relationship Specialty Start Date End Date Aleksandra Acuna MD PCP - General 12/09/[address] [place], [place] [phone] documented as of this encounter
--- OUTSIDE RECORDS SUMMARY | 2021-10-19 12:25 | XMS_ITS | Encounter Summary ---
:1960 Author Organization [facility] Address [address] [place] [address] Care Team Providers Name Role Phone Aleksandra Acuna MD Primary Care Provider Encounter Details Date Type Department Care Team Description 05/22/2018 Historical Results Only [facility] - Aleksandra Lora MD [facility] [place] Resul ts [address] [facility] [address] [place] [address] Social History Tobacco Use Types Packs/Day Years Used Date Never Assessed Sex Assigned at Date Recorded Not on file documented as of this encounter Plan of Treatment Upcoming Encounters Date Type Specialty Care Team Description 11/03/2021 Office Visit Rheumatology Tyra Long MD [address] [facility], [address] [place], [place] [address] (Wo rk) documented as of this encounter Procedures Procedure Name Priority Date/Time Associated Diagnosis Comme nts US THYROID/NECK 05/22/2018 13:44 EST Resu lts for this procedure are i n the results section. documented in this encounter Results US THYROID/NECK (05/22/2018 13:44 EST) Specimen Narrative [facility] RADI[facility] - 05/22/2018 13:45 EST ? EXAM: ULTRASOUND/THYROID ?EX. D/ (1554) ? CLINICAL INFORMATION: ? E04.1 (R) THYROID NODULE ? 1+CM NODULE PALPABLE IN (R) THYRO ID REGION, ? EVAL FOR NODULE/MASS LESION, SMOK ER ? INDICATION: E04.1 (R) THYROID NOD ULE , 1+CM NODULE PALPABLE IN (R) ? THYROID REGION,, EVAL FOR NODULE/ MASS LESION, SMOKER . ? COMPARISON: None. ? TECHNIQUE: Sonographic examinatio n of the thyroid was performed. ? Color Doppler imaging was also ut ilized. ? FINDINGS: ? Right thyroid lobe: The right thy roid lobe measures 5.8 cm x 2.1 cm x ? 1.7 cm. There are 2 cysts measuri ng 3 mm each within the right lobe ? of the thyroid. No solid mass or abnormal color Doppler blood flow. ? Left thyroid lobe: The left thyro id lobe measures 6.0 cm x 2.0 cm x ? 1.8 cm. There is a cyst measuring 4 mm within the left thyroid lobe. ? No left thyroid solid mass or abn ormal color Doppler blood flow.. ? The thyroid isthmus measures 5 mm . ? Sonographic examination of the ar ea of palpable concern in the right ? submandibular fossa demonstrates a lymph node measuring 7 mm x 6 mm x ? 4 mm. This has a fatty hilum and vascular pedicle and not ? pathologically enlarged. ? IMPRESSION: ? 1. Tiny thyroid cysts. ? 2. Small right submandibular lymp h node. ? REPORT SIGNED IN OTHER VENDOR SYSTEM 05/22/2018 ?Reported B y: Brandt England MD ? CC: ? Transcribed Date/Time: 05/22/2018 (0803) ? Assistant Attorney General: ? Printed Date/Time: 10/13/2018 (17 36) ? PAGE 1 ? Jo d Report ? Procedure Note Brandt England MD - 02/27/2019 EXAM: ULTRASOUND/THYROID EX. D/T: 05/21 (1554) CLINICAL INFORMATION: E04.1 (R) THYROID NODULE 1+CM NODULE PALPABLE IN (R) THYROID REG ION, EVAL FOR NODULE/MASS LESION, SMOKER INDICATION: E04.1 (R) THYROID NODULE , 1+CM NODULE PALPABLE IN (R) THYROID REGION,, EVAL FOR NODULE/MASS L ESION, SMOKER . COMPARISON: None. TECHNIQUE: Sonographic examination of t he thyroid was performed. Color Doppler imaging was also utilized . FINDINGS: Right thyroid lobe: The right thyroid l obe measures 5.8 cm x 2.1 cm x 1.7 cm. There are 2 cysts measuring 3 m m each within the right lobe of the thyroid. No solid mass or abnorm al color Doppler blood flow. Left thyroid lobe: The left thyroid lob e measures 6.0 cm x 2.0 cm x 1.8 cm. There is a cyst measuring 4 mm within the left thyroid lobe. No left thyroid solid mass or abnormal color Doppler blood flow.. The thyroid isthmus measures 5 mm. Sonographic examination of the area of palpable concern in the right submandibular fossa demonstrates a lymp h node measuring 7 mm x 6 mm x 4 mm. This has a fatty hilum and vascul ar pedicle and not pathologically enlarged. IMPRESSION: 1. Tiny thyroid cysts. 2. Small right submandibular lymph node . REPORT SIGNED IN OTHER VENDOR SYSTEM 05/22/2018 Reported By: Brandt England MD CC: Transcribed Date/Time: 05/22/2018 (8205 ) Assistant Attorney General: Printed Date/Time: 10/13/2018 (1467) PAGE 1 Signed Report Performing Organization Address City/State/ZIP Code Phon e Number [facility] documented in this encounter Visit Diagnoses Not on filedocumented in this encounter Care Teams Tongue And Groove Machine Setter Relationship Specialty Start Date End Date Aleksandra Acuna MD PCP - General 12/09/14 [address] [place] [address] documented as of this encounter
== END 2021-10-18 12:22 | disposition home or self-care (01) ==
LOC: NCHCN 12:21
PROVIDERS: PCP Family Medicine; Visit Provider Family Medicine
DX: E11.9 Type 2 diabetes mellitus without complications (principal)
CPT/HCPCS: 82043; 82570

== ENCOUNTER 2022-08-11 15:25 | Outpatient (REF) | payer MEDICAID, SELFPAY ==
[2022-08-11 15:21] LABS: Anion Gap 5.5 mmol/L (3-11); BUN 25 mg/dL (7-18); CO2 35.5 mmol/L (21.0-32.0); Calcium 9.3 mg/dL (8.5-10.1); Calculated LDL 68 mg/dL (<100); Chloride 98 mmol/L (98-107); Cholesterol 167 mg/dL (<200); Estimated GFR 64.09 (mL/min/1.73m2); Glucose 102 mg/dL (74-106); HDL Cholesterol 50 mg/dL (40-60); Sodium 139 mmol/L (136-145); Triglyceride 247 mg/dL (<150)
[2022-08-11 15:24] LABS: Hemoglobin A1C 6.4 % (<5.7)
[2022-08-11 15:55] LABS: COMMENT (LAB VIEW ONLY) 129.06 mg/dL; Microalb ug/mg Crea 8.8 ug/mg Cr
== END 2022-08-11 15:26 | disposition home or self-care (01) ==
LOC: NCHCN 15:25
PROVIDERS: PCP Family Medicine; Visit Provider Family Medicine
DX: E11.9 Type 2 diabetes mellitus without complications (principal); I10 Essential (primary) hypertension; E78.5 Hyperlipidemia, unspecified
CPT/HCPCS: 80048; 80061; 82043; 82570; 83036

== ENCOUNTER 2022-10-27 14:52 | Outpatient (REF) | payer MEDICAID, SELFPAY ==
[2022-10-27 21:22] LABS: Anion Gap 9.7 mmol/L (3-11); BUN 21 mg/dL (7-18); CO2 29.3 mmol/L (21.0-32.0); CREATININE 1.4 mg/dL (0.55-1.02); Calcium 8.7 mg/dL (8.5-10.1); Chloride 98 mmol/L (98-107); Glucose 80 mg/dL (74-106); Potassium 3.1 mmol/L (3.5-5.1); Sodium 137 mmol/L (136-145)
== END 2022-10-27 14:53 | disposition home or self-care (01) ==
LOC: NCHCN 14:52
PROVIDERS: PCP Family Medicine; Visit Provider Family Medicine
DX: E87.6 Hypokalemia (principal)
CPT/HCPCS: 80048

== ENCOUNTER 2024-06-12 15:03 | Outpatient (REF) | payer OTHER, SELFPAY ==
[2024-06-12 22:22] LABS: Anion Gap 4.8 mmol/L (3-11); BUN 19 mg/dL (7-18); CO2 31.2 mmol/L (21.0-32.0); Chloride 103 mmol/L (98-107); Glucose 75 mg/dL (74-106); Potassium 3.3 mmol/L (3.5-5.1); Sodium 139 mmol/L (136-145)
[2024-06-12 22:38] LABS: COMMENT (LAB VIEW ONLY) 140.21 mg/dL; Microalb ug/mg Crea 8.1 ug/mg Cr
[2024-06-12 22:55] LABS: Hemoglobin A1C 5.9 % (<5.7)
== END 2024-06-12 15:04 | disposition home or self-care (01) ==
LOC: NCHCN 15:03
PROVIDERS: PCP Family Medicine; Visit Provider Family Medicine
DX: E11.8 Type 2 diabetes mellitus with unspecified complications (principal); I10 Essential (primary) hypertension
CPT/HCPCS: 80048; 82043; 82570; 83036

== ENCOUNTER 2024-11-10 13:50 | Outpatient (REF) | payer OTHER, SELFPAY ==
--- NOTE | 2024-11-10 10:00 | PAPFT_PTH ---
PATIENT: Keely Colmenares LOC: [facility]N U#:[id number] AGE/SX: 64/F ROOM: RE11/10/[address]: Aleksandra Acuna : 1960 BED: DIS: 11/10/2024 SPEC #: [id number] RECD: 11/10/24 18:10 STATUS: ANTONIO REQ #: [id number] BARAK: 11/10/24 10:[address]: Aleksandra Acuna DEPT: [facility] Cytology RECD BY: Oxana Pollard Tissues: 1 - CX/ENDOCX FOR PAP SMEARS Procedures: PAP THIN PREP/[facility] Screening HPV DNA PROBE Comments: [id number] (HPV 16 & 18/45)
== END 2024-11-10 13:51 | disposition home or self-care (01) ==
LOC: NCHCN 13:50
PROVIDERS: PCP Family Medicine; Visit Provider Family Medicine
DX: Z00.00 Encounter for general adult medical examination without abnormal findings (principal); Z11.51 Encounter for screening for human papillomavirus (HPV); Z01.419 Encounter for gynecological examination (general) (routine) without abnormal findings; N76.0 Acute vaginitis
CPT/HCPCS: 88142; 87624